=== PATIENT | female | born 1955 | race African-American/Black ===

== ENCOUNTER 2018-07-08 05:57 | Day surgery (SDC) | payer OTHER ==
--- NOTE | 2018-07-08 07:31 | Anesthesia Consultation ---
Anesthesia Consult and Med Hx Date of service: 07/08/18 - Airway Anesthetic Teeth Evaluation: Good ROM Head & Neck: Adequate Mental/Hyoid Distance: Adequate Mallampati Class: Class I Intubation Access Assessment: Good - Pre-Operative Health Status ASA Pre-Surgery Classification: ASA1 Proposed Anesthetic Plan: MAC
--- NOTE | 2018-07-08 07:32 | Anesthesia Day of Surgery ---
Anesthesia Day of Surgery - Day of Surgery Patient Examined: Yes Patient H&P Reviewed: Yes Patient is NPO: Yes
[2018-07-08] MEDS ORDERED: DIPRIVAN 10 MG/ML IV ONE (07:34)
[2018-07-08] MEDS ORDERED: WATER FOR IRRIG STERILE ONE (07:41)
[2018-07-08] MEDS ORDERED: WATER FOR IRRIG STERILE IR ONE (07:41)
[2018-07-08] MEDS ORDERED: NACL 0.9% 1000 ML 1,000 ML IV SCH (08:00)
--- NOTE | 2018-07-08 08:17 | Operative Report ---
Operative Report Operative Report: DATE OF SERVICE: 07/08/18 SURGEON: Brennon Rios MD COLONOSCOPY REPORT PREOPERATIVE AND POSTOPERATIVE DIAGNOSIS: avg risk screening colonoscopy DESCRIPTION OF PROCEDURE: The colonoscope was passed to the terminal ileum as identified by the ileal tissue. Scope was carefully withdrawn. Retroflexion was performed in the rectum. At the end of procedure, the scope was cleaned using normal technique. Vital signs monitored continuously throughout. SEDATION: Provided by [facility]. Quality of the prep was excellent COMPLICATIONS: None. ESTIMATED BLOOD LOSS: none FINDINGS: * Normal terminal ileum * Single small diverticulum in the ascending colon * Remainder of the exam was normal RECOMMENDATIONS: * Repeat screening colonoscopy in 10 years
[2018-07-08 08:56] VITALS: BP 115/59
== END 2018-07-08 05:58 | disposition home or self-care (01) ==
LOC: GIO 05:57
PROVIDERS: ATTEND Student in an Organized Health Care Education/Training Program
DX: Z12.11 Encounter for screening for malignant neoplasm of colon (principal); K57.30 Diverticulosis of large intestine without perforation or abscess without bleeding; Z79.899 Other long term (current) drug therapy
CPT/HCPCS: 45378; J2704; J7030